=== PATIENT | female | born 1960 | race Two or more races ===

== ENCOUNTER 2017-05-13 08:18 | Day surgery (SDC) | payer OTHER ==
[~2017-05-13] VITALS: Ht 154.9 cm; Wt 64.3 kg
[~2017-05-13 08:18] MED LIST: NO MEDS.
[2017-05-13 08:56] VITALS: Ht 154.9 cm; Wt 64.3 kg
[2017-05-13 09:54] VITALS: BP 121/60; PULSE 54; RESP 18
--- NOTE | 2017-05-13 10:18 | OPPN ---
Date/Time of Note Date/Time of Note DATE: 05/13/17 TIME: 10:16 Operative Report Preoperative Diagnosis Abdominal pain Change in bowel habit Postoperative Diagnosis Gastritis with erosions Internal hemorrhoids No colon neoplasm is identified Operation/Procedure Performed Esophagogastroduodenoscopy and biopsy Colonoscopy Surgeon see signature line mailroom assistant None Anesthesia: moderate sedation Estimated blood loss: none Transfusion Required none Specimen Gastric mucosal biopsy Grafts/Implants none Complications none PATRICK FOLEY MD May 13, 2017 10:18
[2017-05-13] MEDS ORDERED: MIDAZOLAM 1 MG/ML 2 ML INJ ONE ×2 (10:22)
[2017-05-13] MEDS ORDERED: FENTAnyl 50 MCG/ML VIAL ONE (10:23)
--- NOTE | 2017-05-13 11:32 | GILP ---
DATE OF PROCEDURE: NAME OF PROCEDURES: 1. Esophagogastroduodenoscopy and biopsy. 2. Colonoscopy. SURGEON: Patrick Zarate MD. PREOPERATIVE DIAGNOSES: 1. Abdominal pain. 2. Change in bowel habit. POSTOPERATIVE DIAGNOSES 1. Gastritis with erosions. 2. Gastric mucosal biopsies were taken for Helicobacter pylori test. 3. Colonoscopy all the way to the cecum. 4. Internal hemorrhoids. 5. No colon neoplasm was identified. INDICATION FOR THE PROCEDURE: Ms. Brenna Crenshaw is a 57-year-old female patient who had upper abdom inal pain not responding to therapy. The patient also noticed a change in the bowel habit. The procedures and possible complications are well explained to the patient. She understood and con sented to the procedure. DESCRIPTION OF PROCEDURE: Under the influence of fentanyl and Versed, the gastroscope was carefully introduced into the esophagus and under direct vision, it was advanced to the stomach and through t he pylorus into the duodenal bulb and descending duodenum. FINDINGS: ESOPHAGUS: The mucosa was normal. STOMACH: The patient had gastritis with erosions. Gastric mucosal biopsies were taken for H. pylor i test. DUODENUM: Normal. The colonoscope was carefully introduced in the rectum and under direct vision, it was advanced all the way to the cecum. FINDINGS: The patient had internal hemorrhoids. No colon neoplasm was identified. She tolerated the procedure very well and there was no complication from the procedure. At the end of the procedures, she was awake with stable vital signs and she was discharged home to the care of her family. IMPRESSION: Please see postoperative diagnoses. PLAN: 1. Omeprazole 40 mg p.o. q.a.m. 2. Await H. pylori test report, as above. 3. Screening colonoscopy in 10 years. Dictated By: PATRICK GALLAGHER/PRABHA Conf#: [id number] DID#: [id number]
== END 2017-05-13 11:06 | disposition home or self-care (01) ==
LOC: GIL 08:18
PROVIDERS: ATTEND Internal Medicine Gastroenterology
DX: R19.4 Change in bowel habit (principal); K29.60 Other gastritis without bleeding; K64.8 Other hemorrhoids
CPT/HCPCS: 43239; 45378; 87081; J2250; J3010; Z7610